=== PATIENT | female | born 1965 | race Caucasian/White ===

== ENCOUNTER 2024-03-19 12:45 | Day surgery (SDC) | payer BC ==
[2024-03-15 11:40] LABS: BASOPHILS % (AUTO) 0.5 % (0-1); EOSINOPHILS # (AUTO) 0.1 X10'3 (0-0.9); EOSINOPHILS % (AUTO) 1.6 % (0-6); HEMATOCRIT 45.1 % (35.0-45.0); HEMOGLOBIN 15.1 g/dl (12.0-16.0); LYMPHOCYTES # (AUTO) 2.4 X10'3 (1.1-4.8); LYMPHOCYTES % (AUTO) 35.8 % (21-51); MEAN CORPUSCULAR HEMOGLOBIN 30.4 PG (27.0-31.0); MEAN CORPUSCULAR HGB CONC 33.4 g/dL (33.0-36.5); MEAN CORPUSCULAR VOLUME 90.9 FL (78-98); MONOCYTES # (AUTO) 0.5 X10'3 (0-0.9); MONOCYTES % (AUTO) 7.9 % (2-12); NEUTROPHILS # (AUTO) 3.7 X10'3 (1.8-7.7); NEUTROPHILS % (AUTO) 54.2 % (42-75); PLATELET COUNT 181 X10'3 (140-440); RED BLOOD COUNT 4.96 X10'6 (4.20-5.60); RED CELL DISTRIBUTION WIDTH 12.7 % (11.5-14.5); WHITE BLOOD COUNT 6.8 X10'3 (4.5-11.0)
[2024-03-15 11:56] LABS: APTT 26 SECONDS (22-32); INR 1.1 INR
[2024-03-15 11:58] LABS: ALBUMIN 3.8 G/DL (3.4-5.0); ANION GAP 7 (8-16); BLOOD UREA NITROGEN 21 MG/DL (7-18); CALCIUM 9.3 MG/DL (8.5-10.1); CHLORIDE 101 MMOL/L (99-107); CREATININE 0.75 MG/DL (0.40-0.90); GLUCOSE 97 MG/DL (70-104); POTASSIUM 4.1 MMOL/L (3.5-5.1); SODIUM 137 MMOL/L (135-145); TOTAL CARBON DIOXIDE 28.7 MMOL/L (24-32); eGFR 79 ML/MIN
[~2024-03-19] VITALS: Ht 170.2 cm; Wt 97.1 kg
[2024-03-19] VITALS (9 sets, daily range): BP systolic 111–141; BP diastolic 72–96; PULSE 74–108; RESP 10–12; TEMP 98.2; O2SAT 94–100
[2024-03-19] MEDS ORDERED: LISI1TAB49 PO (13:56)
[2024-03-19] MEDS ORDERED: APIX5TAB3 PO (13:56)
[2024-03-19] MEDS ORDERED: ROSU20TA73 PO (13:56)
[2024-03-19] MEDS ORDERED: FLEC50TA PO (13:56)
[2024-03-19] MEDS: fentaNYL/PF 50MCG/1 ML 2ML syringe IV ONE (15:36)
[2024-03-19] MEDS: MIDAZolam 1mg/ml 10ml vial IV ONE (15:36)
[2024-03-19] MEDS: normal saline 1000ml 1,000 ML IV SCH (15:36)
== END 2024-03-19 16:35 | disposition home or self-care (01) ==
LOC: SSTAY O 12:45
PROVIDERS: ATTEND Internal Medicine Interventional Cardiology
DX: I48.19 Other persistent atrial fibrillation (principal); I10 Essential (primary) hypertension; E78.00 Pure hypercholesterolemia, unspecified; G47.33 Obstructive sleep apnea (adult) (pediatric); Z79.01 Long term (current) use of anticoagulants; Z79.899 Other long term (current) drug therapy
CPT/HCPCS: 36415; 80048; 85025; 85610; 85730; 92960; 93005; J2250; J3010; J7030